=== PATIENT | female | born 1960 | race African-American/Black ===

== ENCOUNTER 2018-07-12 05:52 | Emergency (ER) | payer OTHER ==
[2018-07-12 06:35] VITALS: TEMP 98.2; BMI 26.2
[2018-07-12] MEDS ORDERED: SODIUM CHLORIDE 1,000 ML IV STA (06:50)
[2018-07-12] MEDS ORDERED: HYOSCYAMINE SULFATE 0.125 MG TABLET PO ONE (06:51)
--- NOTE | 2018-07-12 06:52 | PDOC ---
History of Present Illness - General Chief Complaint: Pain Stated Complaint: ABD PAIN Time Seen by Provider: 07/12/18 06:38 History Source: Patient Exam Limitations: No Limitations - History of Present Illness Initial Comments: 07/12/18 06:49 Ms Herman is a 57-year-old female with a history of oxf-[id number]-rmnxyyler diabetes, hypertension who presents emergency department with a complaint of abdominal cramping and diarrhea. Her symptoms began approximately 1 AM. No fevers or chills. She's had approximately 6 watery bowel movements, nonbloody, nonmucoid. Patient is felt nauseous, has not vomited. No recent travel. No ill contacts. No rash shellfish, no undercooked meat. Patient does state she had bad Malay food yesterday. PMH:NIDDM, HTN PSH: MOOSE, Oophorectomy for ectopic Meds: Janumet ALL: NKDA Social: Denies Alcohol, drug, cigarette use FH: non contributory ROS: GENERAL/CONSTITUTIONAL: No: fever, chills, weakness, loss of appetite. HEAD, EYES, EARS, NOSE AND THROAT: No: change in vision, ear pain, discharge, sore throat, throat swelling. CARDIOVASCULAR: No: chest pain, lightheadedness, palpitations, syncope RESPIRATORY: No: cough, shortness of breath, wheezing, hemoptysis, stridor. GASTROINTESTINAL: Yes: nausea, diarrhea, abdominal cramping No: vomiting GENITOURINARY: No: dysuria, hematuria, frequency, urgency, flank pain. MUSCULOSKELETAL: No: back pain, neck pain, joint pain SKIN: No: lesions, pallor, rash or easy bruising. NEUROLOGIC: No: headache, vertigo, paresthesias, weakness HEMATOLOGIC/LYMPHATIC: No: anemia, easy bleeding, swelling nodes. PE: GENERAL: The patient is in no acute distress. HEAD: Normal EYES: PERRLA, EOMI, sclera anicteric, conjunctiva clear. ENT: Ears normal, nares patent, oropharynx clear without exudates. Moist mucous membranes. NECK: Normal range of motion, supple LUNGS: Breath sounds equal, clear to auscultation bilaterally. No wheezes, and no crackles. HEART:Regular rate and rhythm, normal S1 and S2 without murmur, rub or gallop. ABDOMEN: Soft, nontender, normoactive bowel sounds. No guarding, no rebound. EXTREMITIES: Normal range of motion, no edema. No clubbing or cyanosis. No erythema, or tenderness. NEUROLOGICAL: Cranial nerves II through XII grossly intact. Normal speech. No focal neurological deficits. MUSCULOSKELETAL: Back non-tender to palpation, no CVA tenderness SKIN: Warm, Dry, normal turgor, no rashes or lesions noted. 07/12/18 06:52 07/12/18 06:53 07/12/18 07:02 07/12/18 07:03 Past History - Past Medical History Allergies/Adverse Reactions: Allergies Allergy/AdvReac Type Severity Reaction Status Date / Time No Known Allergies Allergy Verified 07/12/18 06:32 Home Medications: Ambulatory Orders Aspirin [ASA -] 81 mg PO DAILY 07/12/18 Losartan Potassium 100 mg PO DAILY 07/12/18 Multivitamin [Multiple Vitamins] 1 each PO DAILY 07/12/18 Sitagliptin Phos/Metformin HCl [Janumet 50-500 mg Tablet] 1 each PO BID COPD: No Diabetes: Yes HTN: Yes - Suicide/Smoking/Psychosocial Hx Smoking History: Never smoked Have you smoked in the past 12 months: No Information on smoking cessation initiated: No Hx Alcohol Use: No Drug/Substance Use Hx: No Substance Use Type: None *Physical Exam - Vital Signs Last Vital Signs Temp Pulse Resp BP Pulse Ox 98.2 F 65 18 199/79 100 07/12/18 06:33 07/12/18 06:33 07/12/18 06:33 07/12/18 06:33 07/12/18 06:33 Medical Decision Making - Medical Decision Making 07/12/18 06:56 Selected Entries 07/12/18 06:33 Temperature 98.2 F Pulse Rate 65 Respiratory 18 Rate Blood Pressure 199/79 O2 Sat by Pulse 100 Oximetry (%) DD includes: Colitis, Gastroenteritis, Diverticulitis (unlikely given no pain) Will do: Labs, hyoscyamine, IV hydration. Patient states she is not nauseous currently, will not give Zofran. Will reassess Patient signed out to the daytime attending 07/12/18 07:03 *DC/Admit/Observation/Transfer - Referrals Referrals: Yonathan Glasgow MD [Primary Care Provider] - - Patient Instructions - Post Discharge Activity
[2018-07-12 07:48] LABS: BASO % 1.1 % (0-2.0); EOS % 0.2 % (0-4.5); HEMATOCRIT 35.5 % (32.4-45.2); HEMOGLOBIN 11.9 GM/dL (10.7-15.3); LYMPH % 14.9 % (8-40); MCH 32.4 pg (25.7-33.7); MCHC 33.5 g/dl (32.0-36.0); MEAN CELL VOLUME 96.8 fl (80-96); MEAN PLT VOLUME 8.5 fl (7.5-11.1); MONO % 2.4 % (3.8-10.2); NEUT % 81.4 % (42.8-82.8); PLATELET COUNT 396 K/MM3 (134-434); RBC 3.67 M/mm3 (3.60-5.2); RDW 12.8 % (11.6-15.6); WHITE BLOOD COUNT 11.7 K/mm3 (4.0-10.0)
[2018-07-12 08:09] LABS: ALBUMIN 3.8 g/dl (3.4-5.0); AMYLASE 71 U/L (25-115); ANION GAP 13 MMOL/L (8-16); BILIRUBIN,TOTAL 0.7 mg/dL (0.2-1.0); BLOOD UREA NITROGEN 20 mg/dL (7-18); CHLORIDE 104 mmol/L (98-107); CO2 20 mmol/L (21-32); CREATININE 1.1 mg/dL (0.55-1.02); GLUCOSE,RANDOM 282 mg/dL (74-106); POTASSIUM 4.9 mmol/L (3.5-5.1); SGOT/AST 15 U/L (15-37); SGPT/ALT 21 U/L (13-61); SODIUM 137 mmol/L (136-145); TOT PROT 8.1 g/dl (6.4-8.2)
[2018-07-12 08:10] LABS: ALK PHOS 62 U/L (45-117)
[2018-07-12 08:14] LABS: LIPASE 271 U/L (73-393)
--- NOTE | 2018-07-12 08:15 | PDOC ---
*Physical Exam - Vital Signs Last Vital Signs Temp Pulse Resp BP Pulse Ox 98.2 F 68 16 186/81 100 07/12/18 06:33 07/12/18 07:30 07/12/18 07:30 07/12/18 07:30 07/12/18 07:30 - Physical Exam General Appearance: Yes: Nourished Neck: positive: Trachea midline Respiratory/Chest: positive: Lungs Clear, Normal Breath Sounds Cardiovascular: positive: Regular Rhythm, Regular Rate, S1, S2 Gastrointestinal/Abdominal: positive: Normal Bowel Sounds, Tender, Flat, Soft Musculoskeletal: positive: Normal Inspection Extremity: positive: Normal Capillary Refill, Normal Inspection Integumentary: positive: Normal Color, Warm, Clammy ED Treatment Course - LABORATORY CBC & Chemistry Diagram: 07/12/18 07:22 07/12/18 07:22 - ADDITIONAL ORDERS Additional order review: 07/12/18 07:22 RBC 3.67 MCV 96.8 H MCHC 33.5 RDW 12.8 MPV 8.5 Neutrophils % 81.4 Lymphocytes % 14.9 Monocytes % 2.4 L Eosinophils % 0.2 Basophils % 1.1 - Medications Given in the ED: ED Medications Discontinued Medications Generic Name Dose Route Start Last Admin Trade Name Freq PRN Reason Stop Dose Admin Hyoscyamine Sulfate 0.125 mg 07/12/18 06:51 07/12/18 07:22 Levsin - PO 07/12/18 06:52 0.125 mg NOW ONE Administration Sodium Chloride 1,000 mls @ 1,000 mls/hr 07/12/18 06:50 07/12/18 07:22 Normal Saline - IV 07/12/18 07:49 1,000 mls/hr ASDIR STA Administration Medical Decision Making - Medical Decision Making 07/12/18 08:11 57 yo F with h/o HTN HLD her with c/o diarrhea and abd cramping. started last pm early am. has had 6 episodes watery stool, non bloody, abd cramping. no f/c no vomiting only nausea. no f/conly prior abd surgery is h/o ectopic. on exam abd soft nondistended and nontender. differential pancreatitis. colitis, dehydration electrolyte abnormality. plan labs iv hydration. trial po reassess. 07/12/18 15:[address] a/p normal. except fatty liver. labs unremarkable. feeling better. tolerating PO. dc home given copies of all results. dc to pcp. *DC/Admit/Observation/Transfer Diagnosis at time of Disposition: Colitis - Discharge Dispostion Disposition: HOME Condition at time of disposition: Improved - Referrals Referrals: Yonathan Glasgow MD [Primary Care Provider] - - Patient Instructions Printed Discharge Instructions: Viral Gastroenteritis Additional Instructions: you should eat bland diet, drink plenty of liquids for 24 - 48 hrs. return for any vomiting or any other concerns. follow up with the primary doctor. - Post Discharge Activity
[2018-07-12] MEDS ORDERED: FAMOTIDINE 20 MG/50 ML IVPB 20 MG/50 ML MG IVPB ONE ×2 (09:01→09:14)
[2018-07-12] MEDS ORDERED: ONDANSETRON 4 MG/2 ML VIAL IVPUSH ONE (09:01)
[2018-07-12] MEDS ORDERED: ONDANSETRON 4 MG/2 ML VIAL ONE (09:13)
[2018-07-12 09:57] LABS: URINE APPEARANCE CLEAR; URINE BILIRUBIN NEGATIVE (<2.0 mg/dL); URINE COLOR LTYELLOW; URINE GLUCOSE (UA) 3+ (NEGATIVE); URINE KETONE NEGATIVE (NEGATIVE); URINE LEUK ESTERASE NEGATIVE (NEGATIVE); URINE NITRITE POSITIVE (NEGATIVE); URINE PROTEIN NEGATIVE (NEGATIVE); URINE UROBILINOGEN NEGATIVE mg/dL (0.2-1.0)
[2018-07-12 10:01] LABS: EPI CELLS RARE /HPF (FEW); URINE BACTERIA MODERATE /hpf (NONE SEEN); URINE HYALINE CAST 2 /lpf; URINE MUCUS RARE
[2018-07-12 14:29] VITALS: BP 174/84; PULSE 74
== END 2018-07-12 15:23 | disposition home or self-care (01) ==
LOC: JER 05:52
PROC: 3E0337Z Introduction of Electrolytic and Water Balance Substance into Peripheral Vein, Percutaneous Approach (ICD-10-PCS; principal; 2018-07-12)
PROC: 3E033GC Introduction of Other Therapeutic Substance into Peripheral Vein, Percutaneous Approach (ICD-10-PCS; 2018-07-12)
PROC: 3E033GC Introduction of Other Therapeutic Substance into Peripheral Vein, Percutaneous Approach (ICD-10-PCS; 2018-07-12)
DX: K52.9 Noninfective gastroenteritis and colitis, unspecified (principal); I10 Essential (primary) hypertension; E11.9 Type 2 diabetes mellitus without complications; Z79.84 Long term (current) use of oral hypoglycemic drugs
CPT/HCPCS: 36415; 74177-TC; 80053; 81003; 81015; 82009; 82150; 83690; 85025; 87086; 87186; 99283-25; J7030